=== PATIENT | male | born 1970 | race Caucasian/White ===

== ENCOUNTER 2019-01-16 03:36 | Inpatient (IN) | payer MEDICAID ==
[2019-01-16] VITALS (7 sets, daily range): BP systolic 144–160; BP diastolic 83–100
[~2019-01-16] VITALS: Ht 177.8 cm; Wt 76.8 kg
--- NOTE | 2019-01-16 03:40 | NUR ---
PT BIBRA FROM HOME C/O MIDSTERNAL CHEST PAIN X3 DAYS, WORSE TODAY. PT ALSO C/O SOB AND VOMITTING X1 DAY. PT DENIES DIZZINESS, HEADACHE, RADIATION OF PAIN. PT AAOX4. APPEARS UNCOMFORTABLE. NOTED HYPERTENSION, AWARE. PT PLACED IN GOWN AND ON CONTINUOUS RUNWAY MODEL, WILL CONTINUE TO MONITOR.
--- NOTE | 2019-01-16 03:50 | NUR ---
IV INITIATED L FOREARM 20G. LABS DRAWN FROM SITE. SENT TO LAB. IV INTACT AND PATENT, PLACED ON SALINE LOCK
[2019-01-16] MEDS ORDERED: NITROGLYCERIN 0.4 MG/TAB BOTTLE ONE (04:27)
[2019-01-16] MEDS ORDERED: ASPIRIN 325 MG TABLET ONE (04:28)
[2019-01-16] MEDS ORDERED: ASPIRIN 325 MG TABLET PO ONE (04:30)
[2019-01-16] MEDS ORDERED: NITROGLYCERIN 0.4 MG/TAB BOTTLE SL ONE (04:30)
--- NOTE | 2019-01-16 04:40 | NUR ---
RADIOLOGY AT BEDSIDE
[2019-01-16 05:01] LABS: BASOPHILS % (AUTO) 0.3 % (0.0-2.0); EOSINOPHILS % (AUTO) 1.2 % (0.0-6.0); HEMATOCRIT 37 % (39-51); HEMOGLOBIN 12.5 g/dL (13.5-17.5); LYMPHOCYTES % (AUTO) 11.2 % (20.0-44.0); MEAN CORPUSCULAR HGB CONC 34 g/dl (31.0-36.0); MEAN CORPUSCULAR VOLUME 91 fL (80-96); MONOCYTES # (AUTO) 0.4 /CMM (0.1-1.30); MONOCYTES % (AUTO) 4.9 % (2.0-12.0); NEUTROPHILS # (AUTO) 7.2 /CMM (1.8-8.9); NEUTROPHILS % (AUTO) 82.4 % (43.0-81.0); PLATELET COUNT (AUTO) 173 /CMM (150-450); RED BLOOD CELL COUNT(AUTO) 4.02 MIL/uL (4.5-6.0); WHITE BLOOD COUNT (AUTO) 8.8 K/uL (4.3-11.0)
[2019-01-16 05:11] LABS: CALCIUM, SERUM 8.4 mg/dL (8.5-10.1); CARBON DIOXIDE 23 mmol/L (21-32); CHLORIDE 102 mmol/L (98-107); CREATININE 1.4 mg/dL (0.6-1.3); GLUCOSE 267 mg/dL (74-106); POTASSIUM 3.7 mmol/L (3.5-5.1); SODIUM SERUM 137 mmol/L (136-145); UREA NITROGEN, BLOOD 7 mg/dL (7-18)
--- NOTE | 2019-01-16 05:50 | NUR ---
URINE COLLECTED AND SENT TO LAB
[2019-01-16] MEDS ORDERED: IV NS 0.9% 1,000 ML BAG IV ONE ×2 (06:00)
[2019-01-16] MEDS ORDERED: MORPHINE SULFATE INJ 2 MG/ML DISP.SYRIN IV ONE (06:00)
[2019-01-16] MEDS ORDERED: MORPHINE SULFATE INJ 4 MG/ML DISP.SYRIN ONE (06:01)
[2019-01-16 06:13] LABS: APPEARANCE,URINE CLEAR (CLEAR); BILIRUBIN,URINE NEGATIVE (NEGATIVE); BLOOD, URINE NEGATIVE Ery/uL (NEGATIVE); COLOR,URINE YELLOW (YELLOW); KETONES,URINE NEGATIVE (NEGATIVE); LEUKOCYTE ESTERASE ,URINE NEGATIVE (NEGATIVE); NITRITE, URINE NEGATIVE (NEGATIVE); PROTEIN,URINE NEGATIVE (NEGATIVE); UGLUCOSE 3+ mg/dL (NEGATIVE); UROBILINOGEN,URINE 0.2 EU/dL (0.2)
--- NOTE | 2019-01-16 06:28 | NUR ---
RT AT BEDSIDE FOR VBG
[2019-01-16] MEDS ORDERED: ONDANSETRON HCL/PF 4 MG/2 ML VIAL IVP PRN (06:30)
[2019-01-16] MEDS ORDERED: *INSULIN REGULAR(HUMULIN R)HUM 100 UNIT/ML VIAL SQ PRN (06:30)
[2019-01-16] MEDS ORDERED: MAGNESIUM HYDROXIDE 30 ML UDC PO PRN (06:30)
[2019-01-16] MEDS ORDERED: HYDROCODONE/APAP 5/325MG 1 EACH TABLET PO PRN (06:30)
[2019-01-16] MEDS ORDERED: DEXTROSE 50%-WATER 50 ML DISP.SYRIN IV PRN (06:30)
[2019-01-16] MEDS ORDERED: ZOLPIDEM TARTRATE 5 MG TABLET PO PRN (06:30)
[2019-01-16] MEDS ORDERED: Z GUARD REMEDY 2 OZ OINT TP PRN (06:30)
[2019-01-16] MEDS ORDERED: ACETAMINOPHEN 325 MG TABLET PO PRN (06:30)
[2019-01-16 06:31] LABS: BACTERIA,URINE None seen /HPF (None Seen); MUCUS,URINE Few /LPF (None Seen); RBC,URINE 0-2 /HPF (0-2); SQUAMOUS EPITHELIAL CELL,UR Few /HPF (None Seen); WBC,URINE 0-2 /HPF (0-3); YEAST,URINE Few /HPF (None Seen)
[2019-01-16 06:32] LABS: ABG BASE EXCESS -2.5 mmol/L; ABG OXYGEN SATURATION 73.3 % (92.0-98.5); ABG PCO2 39.1 mmHg (35.0-45.0); ABG PH 7.375 (7.350-7.450); ABG PO2 38.8 mmHg (75.0-100.0); COHb 2.7 % (0.5-1.5); MetHb 0.4 % (0.0-1.5); SITE, ABG A-Line; VENT MODE, BG Room Air
--- NOTE | 2019-01-16 07:15 | NUR ---
RECEIVED REPORT FROM HANNAH DENNIS FOR PATRICIA, PT IS AAOX4, NOT IN RESPIRATORY DISTRESS, V/S STABLE, KEPT RESTED AND COMFORTABLE, AWAITING ROOM FOR PT ADMISSION.
[2019-01-16 07:21] LABS: ALBUMIN 3.4 g/dL (3.4-5.0); BILIRUBIN,DIRECT 0.1 mg/dL (0.0-0.2); BILIRUBIN,TOTAL 0.3 mg/dL (0.2-1.0); TOTAL PROTEIN, SERUM 6.8 g/dL (6.4-8.2)
[2019-01-16] MEDS ORDERED: PANTOPRAZOLE 40 MG TABLET.DR PO SCH (07:30)
[2019-01-16] MEDS ORDERED: VALB40CA PO (07:59)
[2019-01-16] MEDS ORDERED: METF-440 PO (07:59)
--- NOTE | 2019-01-16 08:19 | NUR ---
[id number] TELE JERICA YOUNG
--- NOTE | 2019-01-16 08:24 | NUR ---
REPORT GIVEN TO HANNAH WHIPPLE FOR PATRICIA.
--- NOTE | 2019-01-16 09:00 | NUR ---
EVIDENCE SPECIALIST NOTE RECEIVED PATIENT ON [facility]. A/O X4. TOLERATING ROOM AIR. RESPIRATIONS EVEN AND UNLABORED. DENIES SOB. DENIES PAIN AT THIS TIME. IV ACCESS LEFT AC GAUGE 20. ATTACHED EXTERNAL TELE MONITOR, IT READS SINUS RHYTHM 103. BED IS LOW AND LOCKED. CALL LIGHT WITHIN REACH. WILL CONTINUE TO MONITOR.
[2019-01-16] MEDS: BLOOD SUGAR DIAGNOSTIC 1 EACH STRIP VI SCH ×3 (12:41→21:10)
[2019-01-16] MEDS: INSULIN REGULAR, HUMAN 100 UNIT/ML 3 ML VIAL SQ PRN (12:54)
--- NOTE | 2019-01-16 14:00 | NUR ---
TELE/RN NOTE THE PATIENT IS SCHEDULED TO HAVE TROPONIN CHECK AT 1226, HOWEVER, LAB REFUSING TO DRAW BLOOD STATING THAT THERE IS NO TROPONIN SCHEDULED AT 1226. RECEIVED NEW ORDER FROM NINA ANSARI FOR STAT TROPONIN. READ BACK, VERIFIED. NOTED AND CARRIED OUT. THE PATIENT IN STABLE CONDITION. DENIES PAIN PAIN/DISCOMFORT AT THIS TIME. RESPIRATION REGULAR AND UNLABORED. DENIES SOB. WILL CONTINUE TO MONITOR.
[2019-01-16] MEDS: IV 1/2NS 1000 ML 1,000 ML IV PRN ×2 (15:38→23:41)
[2019-01-16] MEDS: MAG HYDROX/AL HYDROX/SIMETH 30 ML UDC PO PRN (17:19)
--- NOTE | 2019-01-16 18:05 | NUR ---
VEHICLE REFINISHER CLOSING NOTE PATIENT IS RESTING IN BED. A/O X3. TOLERATING ROOM AIR WITH O2 SAT OF 97%. RESPIRATIONS ARE EVEN AND UNLABORED. DENIES SOB. DENIES PAIN AT THIS TIME. EXTERNAL TELE MONITOR READS SINUS RHYTHM AT 85 BPM. IV ACCESS LEFT AC GAUGE 20 RUNNING 1/2NS@125ML/HR. SKIN IS INTACT, KEPT CLEAN AND DRY. ALL NURSING NEEDS MET. BED IS LOW AND LOCKED, HOB ELEVATED, SIDE RAILS UP X2. CALL LIGHT WITHIN REACH. WILL ENDORSE TO VP STRATEGIC PLANNING FOR PATRICIA.
--- NOTE | 2019-01-16 19:05 | NUR ---
RANCH COOK NOTE RECEIVED PT IN STABLE CONDITION A&O X4, CURRENTLY IN BED WATCHING TV. NO SIGNS OF SOB OR DISTRESS, NO C/O PAIN. IV IN L AC IN PLACE WITH IVF INFUSING. ALL CURRENT NEEDS ATTENDED TO. BED LOW, LOCKED, UPPER RAILS UP, AND CALL LIGHT WITHIN REACH. WILL CONT. TO MONITOR.
--- NOTE | 2019-01-16 19:57 | NUR ---
DRILL OPERATOR NOTE PRN TYLENOL 650 MG PO GIVEN FOR MILD HEADACHE 07/19. WILL CONT. TO MONITOR.
[2019-01-17] VITALS: BP 154/90
[2019-01-17] MEDS: MAG HYDROX/AL HYDROX/SIMETH 30 ML UDC PO PRN (01:17)
--- NOTE | 2019-01-17 01:17 | NUR ---
MARINE FITTER NOTE PRN MAALOX PO GIVEN FOR PT C/O HEARTBURN. WILL CONT. TO MONITOR.
[2019-01-17 04:25] VITALS: BP 148/90
[2019-01-17] MEDS: INSULIN REGULAR, HUMAN 100 UNIT/ML 3 ML VIAL SQ PRN ×2 (06:15→12:03)
--- NOTE | 2019-01-17 06:30 | NUR ---
RUG INSPECTOR HELPER NOTE PT IN STABLE CONDITION A&O X4, CURRENTLY IN BED WATCHING TV. NO SIGNS OF SOB OR DISTRESS, NO C/O PAIN. IV IN L AC IN PLACE WITH IVF INFUSING. ALL CURRENT NEEDS ATTENDED TO. BED LOW, LOCKED, UPPER RAILS UP, AND CALL LIGHT WITHIN REACH. WILL CONT. TO MONITOR. MONITOR READING: SR 86
[2019-01-17 06:33] LABS: BASOPHILS % (AUTO) 0.3 % (0.0-2.0); EOSINOPHILS % (AUTO) 1.7 % (0.0-6.0); HEMATOCRIT 34 % (39-51); HEMOGLOBIN 11.8 g/dL (13.5-17.5); LYMPHOCYTES # (AUTO) 1.2 /CMM (0.8-4.8); LYMPHOCYTES % (AUTO) 17.3 % (20.0-44.0); MEAN CORPUSCULAR HGB CONC 35 g/dl (31.0-36.0); MEAN CORPUSCULAR VOLUME 90 fL (80-96); MONOCYTES # (AUTO) 0.4 /CMM (0.1-1.30); NEUTROPHILS # (AUTO) 5.4 /CMM (1.8-8.9); NEUTROPHILS % (AUTO) 74.7 % (43.0-81.0); PLATELET COUNT (AUTO) 171 /CMM (150-450); RED BLOOD CELL COUNT(AUTO) 3.79 MIL/uL (4.5-6.0); WHITE BLOOD COUNT (AUTO) 7.2 K/uL (4.3-11.0)
[2019-01-17 06:56] LABS: CALCIUM, SERUM 7.6 mg/dL (8.5-10.1); CREATININE 1.2 mg/dL (0.6-1.3); MAGNESIUM 1.8 mg/dL (1.8-2.4); POTASSIUM 3.8 mmol/L (3.5-5.1)
[2019-01-17 07:07] LABS: THYROID STIMULATING HORMONE 2.795 uIU/mL (0.358-3.74)
--- NOTE | 2019-01-17 07:28 | NUR ---
PREFORMER IMPREGNATED FABRICS OPENING NOTES RECEIVED PT IN BED, A/O X4, ASLEEP, EASILY AROUSED. PT TOLERATING RA, WITH ACUTE RESPIRATORY DISTRESS NOTED. PT DENIES ANY PAIN OR DISCOMFORT AT THIS MOMENT. PT ALSO DENIES ANY QUESTIONS AND CONCERNS. ON TELEMONITORING SR, WITH HR OF 92. IVF 1/2 NS AT 125ML/HR TO LAC G20, INTACT AND FLUID INFUSING WELL. PT KEPT COMFORTABLE. PT'S BED IN LOWEST, LOCKED POSITION WITH SR X2. CALL LIGHT WITHIN REACH. WILL CONTINUE PLAN OF CARE.
[2019-01-17] MEDS ORDERED: PANTOPRAZOLE 40 MG TABLET.DR PO SCH (07:30)
[2019-01-17] MEDS: BLOOD SUGAR DIAGNOSTIC 1 EACH STRIP VI SCH ×2 (07:31→12:02)
[2019-01-17 08:00] VITALS: BP 128/105
--- NOTE | 2019-01-17 09:11 | NUR ---
RN NOTES PT SEEN AND EVALUATED BY PLY BANDER/DR MAY. NO NEW ORDERS NOTED AT THIS MOMENT. PT OK TO TRANSFER TO [place].
[2019-01-17 09:18] LABS: IRON, SERUM 86 ug/dl (50-175); TOTAL IRON BINDING CAPACITY 139 ug/dl (250-450)
[2019-01-17 09:32] LABS: FERRITIN 175 ng/mL (8-388)
[2019-01-17] MEDS ORDERED: PANT40TA2 PO (11:46)
[2019-01-17] MEDS ORDERED: hydrALAZINE HCL 25 MG TABLET PO ONE (14:05)
[2019-01-17 14:23] VITALS: BP 181/97
--- NOTE | 2019-01-17 14:50 | NUR ---
MS DRIP PUMPER NOTES PT TO DISCHARGE HOME; PROVDED [facility] TRANSPORT. PT A/O X3; AMBULATORY, TOLERATING RA WITH NO ACUTER ESPIRATORY DISTRESS NOTED. PT DENIES PAIN OR ANY DISCOMFORT AT THE TIME OF DISCHARGE. SKIN INTACT, NO PICTURES TAKEN AND FILED ON THE CHART. REVIEWED AND SIGNED DISCHARGE INSTRUCTIONS AND INVENTORY LIST BY PATIENT. ALL BELONGINGS WITH PT. PRESCRIPTION OF PROTONIX GAVE TO PT.PIV TO LAC REMOVED, APPLIED DRY DRESSING. ALL NEED AND CARE PROVIDED TO PT. BP WAS HIG BEFORE DISCHARGE, SECRETARY BOOKKEEPER/CN MADE AWARE AND GAVE ONE TIME DOSE OF HTN MED BEFORE LEAVING. PT LEFT THE UNIT ESCORTED BY DAYTIME BABYSITTER VIA WHEELCHAIR AT 1425. CN/CAROL ANN AND SECRETARY BOOKKEEPER/CN AWARE OF DISCHARGE.
== END 2019-01-17 14:20 | disposition home or self-care (01) | DRG 243 ==
LOC: ER 03:41 → TELE 08:27 → MED 01-17 11:20
PROVIDERS: ADMIT Nurse Practitioner Acute Care; ATTEND Nurse Practitioner Acute Care
DX: K21.9 Gastro-esophageal reflux disease without esophagitis (principal); N17.9 Acute kidney failure, unspecified; D63.8 Anemia in other chronic diseases classified elsewhere; E11.9 Type 2 diabetes mellitus without complications; F17.210 Nicotine dependence, cigarettes, uncomplicated; F12.90 Cannabis use, unspecified, uncomplicated; F32.9 Major depressive disorder, single episode, unspecified; R94.31 Abnormal electrocardiogram [ECG] [EKG]; I25.10 Atherosclerotic heart disease of native coronary artery without angina pectoris
CPT/HCPCS: 36415; 36600; 71045-TC; 74018; 80048-TC; 80061-TC; 80076-TC; 81000-TC; 82728-TC; 82803-TC; 82962-TC; 83540-TC; 83690-TC; 83735-TC; 84100-TC; 84443-TC; 84484-TC; 85025-TC; 87081-TC; 93307-TC; G0378; J1815; J2270; J3490; J7030